=== PATIENT | male | born 1980 | race Hispanic/Latino ===

== ENCOUNTER 2024-01-09 09:26 | Inpatient (IN) | payer SELFPAY ==
[2024-01-09 10:25] LABS: #Basophils 0.06 10x3/uL (0.0-0.2); %Basophils 0.6 % (0.0-1.0); %Eosinophils 6.1 % (0.0-10.0); %Lymphocytes 20.4 % (21.0-51.0); %Monocytes 7.8 % (0.0-10.0); %Neutrophils 64.6 % (42.0-75.0); Hemoglobin 15.4 g/dL (14.0-18.0); Mean Corpuscular HGB CONC 34.2 g/dL (32.0-36.0); Mean Corpuscular Hemoglobin 32.1 pg (27.0-31.0); Mean Corpuscular Volume 93.8 fL (78.0-98.0); Mean Platelet Volume 11.1 fL (7.4-10.4); Platelet Count 304 10x3/uL (130-400); RBC Distribution Width 12.7 % (11.5-14.5)
[2024-01-09] MEDS ORDERED: Ketorolac Tromethamine 30 MG (1 mL) VIAL ONE (10:27)
[2024-01-09 10:42] LABS: ALT (SGPT) 31 U/L (8-55); AST (SGOT) 28 U/L (5-34); Albumin 3.6 g/dL (3.5-5.0); Alkaline Phosphatase 129 U/L (40-110); Anion Gap 16 mmol/L (10-20); BUN (Urea Nitrogen) 13 mg/dL (8.9-20.6); Bilirubin, Total 0.4 mg/dL (0.2-1.2); Calc. Creatinine Clearance 0 mL/min (70-130); Calcium 9.4 mg/dL (7.8-10.44); Carbon Dioxide 23 mmol/L (22-29); Chloride 107 mmol/L (98-107); Estimated GFR 112; Globulin 3.9 g/dL (2.4-3.5); Glucose 115 mg/dL (70-105); Potassium 3.5 mmol/L (3.5-5.1); Protein, Total 7.5 g/dL (6.0-8.3); Sodium 142 mmol/L (136-145)
[2024-01-09] MEDS ORDERED: Lidocaine 1% (PF) 30 ML VIAL ONE (12:14)
[2024-01-09] MEDS ORDERED: Iopamidol-M 200 41% 10 ML VIAL FS ONE (12:39)
[2024-01-09] MEDS ORDERED: LevoFLOXacin 750 mg/D5W 150 ml Premix Bag ONE (13:05)
[2024-01-09 13:10] LABS: Bacteria/HPF 2+ HPF (None Seen); Bilirubin Negative (Negative); Blood, Urine 2+ (Negative); CAUTI Indications for Culture Alt mental st,lethar; Clarity Extra Turbid (Clear); Glucose, Urine (Dipstick) Normal (Negative); Ketone, Urine Trace mg/dL (Negative); Leukocyte 500 Leu/uL (Negative); Nitrite Negative (Negative); Protein, Urine (Dipstick) 100 mg/dL (Neg-Trace); Urobilinogen 3 mg/dL (Less than 2)
[2024-01-09 13:13] LABS: Specific Gravity, Urine 1.055 (1.002-1.036); WBC/HPF 21-50 HPF (0-3)
[2024-01-09 13:14] LABS: Urine Culture Reflex Yes Yes
[2024-01-09 13:18] LABS: Amphetamine Detected (NotDetected); Barbiturates Screen Not Detected (NotDetected); Benzodiazepine Screen Not Detected (NotDetected); Cocaine Metabolite Screen Not Detected (NotDetected); Methadone Not Detected (NotDetected); Methamphetamine Detected (NotDetected); Opiate Screen Not Detected (NotDetected); Oxycodone Screen Not Detected (NotDetected); Phencyclidine (PCP) Not Detected (NotDetected); THC/Cannabinoid Screen Detected (NotDetected); Tricyclic Screen Not Detected (NotDetected)
[2024-01-09 13:54] LABS: Acetaminophen Less than 10 mcg/mL (10.0-30.0); Alcohol Less than 10.0 mg/dL (Less than 10); Salicylate Less than 8.0 mg/dL (15.0-30.0)
[2024-01-09] MEDS ORDERED: Ondansetron ODT 4 MG TAB PO PRN (14:03)
[2024-01-09] MEDS ORDERED: Ketorolac Tromethamine 30 MG (1 mL) VIAL IVP PRN (14:03)
[2024-01-09] MEDS ORDERED: Acetaminophen 325 MG TAB PO PRN (14:03)
[2024-01-09] MEDS ORDERED: traMADol HCl 50 MG TAB PO PRN (14:03)
[2024-01-09] MEDS ORDERED: Glucagon 1 MG/ML KIT IM PRN (14:26)
[2024-01-09] MEDS ORDERED: Dextrose 5% in Water 1,000 ML IV PRN (14:26)
[2024-01-09] MEDS ORDERED: Dextrose 50% Abboject 50 ML SYRINGE SLOW IVP PRN (14:26)
[2024-01-09] MEDS ORDERED: Insulin Lispro 100 UNIT/ML 10 ML VIAL SC PRN ×2 (14:26)
[2024-01-09] MEDS ORDERED: Bacitracin Zinc Ointment 30 gm TUBE ONE (16:31)
[2024-01-09] MEDS ORDERED: Bupivacaine 0.25% HCL 30 ML VIAL ONE (16:31)
[2024-01-09] MEDS: Lactated Ringer's 1,000 ML IV SCH (16:38)
[2024-01-09] MEDS: Fluconazole 100 MG TAB PO SCH (16:39)
[2024-01-09] MEDS: cefTRIAXone\\ROCEPHIN 2 GM in Sodium Chloride 0.9% 100 ML IVPB SCH (16:52)
[2024-01-09] MEDS ORDERED: Famotidine/PF 20 mg/2ml Vial ONE (17:19)
[2024-01-09] MEDS ORDERED: Sodium Chloride 0.9% 100 ML ONE (17:43)
[2024-01-09] MEDS ORDERED: cefTRIAXone (ROCEPHIN) 2 GM VIAL ONE (17:43)
[2024-01-09] MEDS ORDERED: PROPOFOL 20 ML ONE (18:18)
[2024-01-09] MEDS ORDERED: Lidocaine 2% PF 5 ML VIAL ONE (18:19)
[2024-01-09] MEDS ORDERED: SUCCINYLCHOLINE/SOD CL,ISO/PF 200 MG/10 ML SYRINGE FS ONE (18:30)
[2024-01-09] MEDS ORDERED: Rocuronium Bromide 10 MG/ML (10ML VIAL) ONE (18:39)
[2024-01-09] MEDS ORDERED: Ondansetron PF 4 MG/2 ML Vial ONE (18:44)
[2024-01-09] MEDS ORDERED: Dexamethasone 4 mg/ml Vial ONE (18:44)
[2024-01-09] MEDS ORDERED: Dexmedetomidine 200 MCG/2 ML VIAL ONE (19:04)
[2024-01-09] MEDS ORDERED: SUGAMMADEX SODIUM 200 MG/2 ML VIAL ONE (19:05)
[2024-01-09] MEDS ORDERED: fentaNYL 50 mcg/mL 1 mL Vial ONE (19:49)
[2024-01-09] MEDS ORDERED: Promethazine HCl 25 MG/ML VIAL IM PRN (20:07)
[2024-01-09] MEDS ORDERED: Ondansetron HCl/PF 4 MG/2 ML Vial IVP PRN (20:07)
[2024-01-09] MEDS ORDERED: Ketorolac Tromethamine 30 MG/ML VIAL IVP PRN (20:07)
[2024-01-10 05:26] LABS: Chlam.trachomatis by PCR,Urine Not Detected (NotDetected); GC N.gonorrhoeae PCR,UrineVOID Not Detected (NotDetected)
[2024-01-10 06:24] LABS: Hemoglobin A1c 5.9 % (4.0-6.0)
[2024-01-10 06:28] LABS: Anion Gap 8 mmol/L (10-20); BUN (Urea Nitrogen) 8 mg/dL (8.9-20.6); Calc. Creatinine Clearance 218 mL/min (70-130); Calcium 8.3 mg/dL (7.8-10.44); Carbon Dioxide 25 mmol/L (22-29); Chloride 109 mmol/L (98-107); Estimated GFR 123; Glucose 131 mg/dL (70-105); Potassium 3.9 mmol/L (3.5-5.1); Sodium 138 mmol/L (136-145)
[2024-01-10] MEDS: Fluconazole 100 MG TAB PO SCH (10:21)
[2024-01-11] MEDS: Amlodipine 5 MG TAB PO SCH (11:47)
[2024-01-11] MEDS: LevoFLOXacin 750 MG TAB PO SCH (11:47)
[2024-01-11 13:02] VITALS: BP 157/69; TEMP 97.9
[2024-01-12] MEDS ORDERED: LevoFLOXacin 750 MG TAB PO SCH (06:00)
== END 2024-01-11 15:27 | disposition home or self-care (01) | DRG 690 ==
LOC: ERS 09:26 → SURG B 14:16
PROVIDERS: ADMIT Family Medicine; ATTEND Family Medicine
PROC: 0VTTXZZ Resection of Prepuce, External Approach (ICD-10-PCS; principal; 2024-01-09)
PROC: 0T9B70Z Drainage of Bladder with Drainage Device, Via Natural or Artificial Opening (ICD-10-PCS; 2024-01-09)
DX: N39.0 Urinary tract infection, site not specified (principal); N48.1 Balanitis; N47.1 Phimosis; K59.00 Constipation, unspecified; R33.9 Retention of urine, unspecified; B96.89 Other specified bacterial agents as the cause of diseases classified elsewhere; R73.9 Hyperglycemia, unspecified; N35.911 Unspecified urethral stricture, male, meatal; Z83.3 Family history of diabetes mellitus
CPT/HCPCS: 36415; 36416; 74177; 80048; 80053; 80306; 80307; 81001; 82140; 83036; 85025; 87077; 87086; 87186; 87491; 87591; 93005; 93010; 96374; 96375; J0665; J0696; J1100; J1885; J1956; J2001; J2405; J2704; J3010; J3490; Q9966; S0028